=== PATIENT | male | born 2005 | race Caucasian/White ===

== ENCOUNTER 2025-07-12 10:42 | Outpatient (AMB) | payer BC, SELFPAY ==
--- NOTE | 2025-07-12 10:48 | A.OFFPC_ITS ---
Vital Signs 07/12/25 10:55 Height 5 ft 6.54 in Weight 120 lb 8 oz BMI 19.1 BP 116/70 Blood Pressure Location Lt brachial Position Sitting Respiration 12 Pulse 77 Pulse Source Pulse Oximeter Temp 97.7 F Temp Source Oral Pulse Oximetry (%) 98 Oxygen Delivery Method Room Air Intake Visit Reasons: CPE Intake Note: New patient visit Mechatronics Technician Required: No Allergies No Known Allergies Allergy (Verified 07/12/25 10:49) Tobacco use date assessed: 07/12/25 Dental Screening Dental Screen Date: 07/12/25 Did you have a dental visit in the last 12 months?: Yes Did you have a dental problem in the last 6 months where you did not have access to dental care?: No Was dental information given to patient?: Patient has dentist HPI HPI Comments History of Present Illness Details [place] 20 y/o M with ADHD, fhx of glaucoma and macular and thyroid dz. Surgery: wisdom teeth extraction Social: [employer] Fhx: Brother w/ thyroid; Mom with thyroid Health Maintenance Tdap [facility] annual visits History of Present Illness - The patient is a 20-year-old male pres enting for a comprehensive physical exam and establishment of care. - No medical records, Peds in [place] - Reports history of ADHD without curren t medication. - Family history includes thyroid diseas e and ophthalmologic conditions. - Tetanus vaccination updated; prior vac cination in 2014. - Screened for thyroid disease due to [facility] history; results negative per reports. Past Surgical History - [place] teeth extraction with no compli cations. Family History - Mother: Thyroid disease. - Brother: Thyroid disease. - Family history of glaucoma and age-rel ated macular degeneration. Social History - Employed in [employer]. - Lives with parents; reports feeling sa fe at home. - Engaged in a stable relationship. - Reports practicing safe sexual activit ies with a single partner. Health Maintenance - Tetanus vaccination updated as of this visit. - Previously screened for thyroid dysfun ction with normal results due to family history. - Education on self-testicular exams and safe sexual practices provided. Review of Systems - General: Denies significant medical is sues; reports good overall health. - Ophthalmologic: Denies any current iss ues, aware of family history. - Endocrine: Denies any current symptoms ; family history of thyroid disorders. - Dermatologic: Denies any skin concerns . - Genitourinary: Reports practicing safe sex; denies concerns of sexually transmitted diseases. - Neurologic: Reports past history of AD HD, currently asymptomatic. - Other Systems: Specifically denies all ergies, medications, or other ongoing medical treatments. Physical Exam General: Well developed, well nourished, in no acute distress. Appears stated age. Head: Normocephalic, atraumatic. Eyes: Pupils are equal, round and reactive to light and accommodation. Conjunctivae are clear. Vision grossly normal. Ears: TMs clear AU, EACS WNL Nose: Patent, without discharge. Neck: Supple, no adenopathy or thyromegaly. Breast: Edu on SBE Lungs: Clear to auscultation bilaterally. No rales, rhonchi or wheeze noted. Good air flow in all james. Heart: Regular rate and rhythm. No murmurs, click, rubs or gallops are noted. Abdomen: Bowel sounds present in all quadrants. The abdomen is soft, nontender, with no masses or organomegaly noted. No hernias are noted. : Deferred. Reviewed GISSELLE & recommendations Pulses: Peripheral pulses are equal and palpable bilaterally. Extremities: No clubbing, cyanosis nor edema is noted. A blister noted on the foot, likely from walking, should continue to improve. Neurologic: Gait and station normal. Cranial Nerves 2-12 intact. Motor strength grossly symmetrical and intact. No sensory loss. Balance normal. Skin: No rashes, ulcers, or lesions noted. Turgor is good. Skin color is good. Hair and nails are without abnormalities. Psych: Normal eye contact, affect and mood appropriate, and normal interactions. Patient is alert and appropriate to context. Discussion Notes During the consultation, we discussed the patient?s current health status, focusing on general wellness and the family history of thyroid disease and ophthalmologic concerns. I emphasized the importance of regular health maintenance, including self-exams and safe sexual practices. I outlined the functionality of our patient portal for easy communication and follow-up. The patient was encouraged to maintain this channel open for any future health queries or updates. Additionally, I informed the patient about walk-in services available at the clinic should immediate concerns arise. Patient was given time to ask questions. All questions were answered to their satisfaction. Assessment and Plan 1. Attention Deficit Hyperactivity Disor elly (ADHD) - No medication required; maintain monit oring. 2. Thyroid Screening and Family History Concerns - Past screenings normal; advise monitor ing for any symptoms. 3. General Wellness and Ophthalmologic C oncerns - Remain observant of ophthalmologic con ditions; advise routine checks. Tdap today; get records RTO 1 year CPE, sooner PRN Patient Instructions - Set up account in patient portal withi n 24 hours for future communication. - Conduct monthly self-testicular exams; report changes. - Maintain regular annual physical exams . - Continue practicing safe sex. - Notify any symptom changes or medical concerns via patient portal. Consent Patient was informed and verbally consented to the use of an ambient scribe for clinic note documentation during this visit. An additional 20 minutes was spent addressing the problem(s) noted at todays visit. This includes time spent before the visit reviewing the chart, time spent during the visit, and time spent after the visit on documentation reviewing laboratory results, diagnostic imaging, medications, performing a medically necessary evaluation, counseling on diagnoses, care coordination, ordering appropriate tests, ordering appropriate medications, review of tests performed by other providers, reporting test results with the patient, communication with other healthcare providers. [facility] Surgical History (Updated 07/12/25 @ 11:04 by Ellen Pedersen CMA) H/O wisdom tooth extraction Family History (Updated 07/12/25 @ 11:08 by Ellen Pedersen CMA) Maternal Uncle Alcoholism Maternal Grandmother Heart attack Father Hyperlipidemia Mother HTN (hypertension) Thyroid disease Paternal Grandfather Cancer of kidney Other Substance abuse Social History (Updated 07/12/25 @ 11:08 by Ellen Pedersen CMA) Housing: House Alcohol intake: current Patient Tobacco Use Status: Current someday Tobacco user Tobacco use type: Cigar (one every other month) e-Cigarette/Vaping Use: Never Used Second Hand Smoke Exposure: No Use of substances other than those prescribed or required for medical reasons: No service: No Current occupational status: employed Current occupation: [employer] at [employer]. Current occupational exposures/hazards: No Cognitive needs: No Hearing needs: No Vision needs: No Questionnaire PHQ-9 Over the last 2 weeks, how often have you been bothered by any of the following problems? 1. Little interest or pleasure in doing things: not at all 2. Feeling down, depressed, or hopeless: not at all 3. Trouble falling or staying asleep, or sleeping too much: not at all 4. Feeling tired or having little energy: several days 5. Poor appetite or overeating: not at all 6. Feeling bad about yourself - or that you are a failure or have let yourself or your family down: not at all 7. Trouble concentrating on things, such as reading the newspaper or watching television: not at all 8. Moving or speaking so slowly that other people could have noticed. Or the opposite - being so fidgety or restless that you have been moving around a lot more than usual: several days 9. Thoughts that you would be better off or of hurting yourself in some way: not at all Total score: 2 Depression Screening Interpretation: Negative Depression Screening Done: Yes 42147 - PHQ-9 Billing: Yes Source: Developed by Drs. Saurabh Guerra, Laverne Olvera, Jimbo Awad and colleagues, with an educational claude from [employer]. Thrive Questionnaire Date Thrive assessed: 07/05/25 I am a: Patient What is your living situation today?: I have a steady place to live Within the past 12 months, did the food you bought not last and you didn't have the money to get more?: Never true Within the past 12 months, did you worry whether your food would run out before you got money to buy more?: Never true Do you have trouble paying for medicines?: I choose not to answer this question Do you have trouble getting transportation to medical appointments?: No Do you have trouble paying your heating and electricity bill?: No Do you have trouble taking care of your child, family member or friend?: No Do you have trouble with day-to-day activities such as bathing, preparing meals, shopping, managing finances, etc.?: No Are you currently unemployed and looking for a job?: No Are you interested in more education?: Yes Please select the resources that you would like help with: Education Currently or been in a relationship where the following occur: No concerns reported THRIVE Score: 0 AUDIT C Alcohol Use Questionnaire (AUDIT-C) 1. How often do you have a drink containing alcohol?: Monthly or less 2. How many drinks containing alcohol do you have on a typical day when you are drinking?: 1 or 2 3. How often do you have six or more drinks on one occasion?: Less than monthly Total Score: 2 Score Reviewed/Action Taken: Yes CHRISTOPHER-7 AMB Questionnaire CHRISTOPHER-7 Date CHRISTOPHER - 7 assessed: 07/12/25 Feeling nervous, anxious, or on edge: 0 = Not at all Not being able to stop or control worryin = Not at all Worrying too much about different things: 0 = Not at all Trouble relaxin = Not at all Being so restless that it is hard to sit still: 0 = Not at all Becoming easily annoyed or irritable: 1 = Several days Feeling afraid as if something awful might happen: 0 = Not at all Total CHRISTOPHER-7 score (0-4 normal; 5-9 mild; 10-14 moderate; 15-21 severe): 1 Source: Developed by Drs. Saurabh Guerra, Laverne Olvera, Jimbo Awad and colleagues, with an educational claude from [employer]. CHRISTOPHER-7 Assessment Billing CHRISTOPHER-7 Assessment Tool: CHRISTOPHER-7 Assessment 43672 Physical exam (Primary Care) Vital Signs: Last Vital Signs Temp 97.7 F 07/12/25 10:55 Pulse 77 07/12/25 10:55 Resp 12 07/12/25 10:55 BP 116/70 07/12/25 10:55 Pulse Ox 98 07/12/25 10:55 Oxygen Delivery Method Room Air 07/12/25 10:55 BMI result Body Mass Index 19.1 Tobacco/Smoking Status: Tobacco use Status Tobacco use date assessed 07/12/25 07/12/25 10:49 Patient Tobacco Use Status Current someday Tobacco 07/12/25 11:08 Tobacco use type Cigar (one every other month 07/12/25 11:08 ) e-Cigarette/Vaping Use Never Used 07/12/25 11:08 PHQ-9: PHQ-9 Score PHQ-9: Total score 2 07/12/25 11:19 Depression Screening Interpretation: Negative Thrive Assessment: Date of Thrive Assessment Date Thrive assessed 07/05/25 07/12/25 10:49 Currently or been in a relationship where the following occur: No concerns reported Immunizations Boostrix Tdap 2.5 Lf unit-8 mcg-5 Lf/0.5 mL intramuscular syringe Performing Provider: Gwen L O'Hudson, WINDOWS VMWARE ADMINISTRATOR-BC Performing Location: [facility] Administered by: Ellen Pedersen CMA on 07/12/25 11:09 Dose Route Admin Location Dispensed Lot Number Expiration Date [employer] 0.5 mL IM Right Deltoid 0.5 mL [id number] 09/13/27 [id number] Fondu Total Dispensed Waste 0.5 mL 0 % VIS Given Date VIS Provided VIS Publication Date 07/12/25 Single Vaccine 21 Eligibility Eligibility Date Funding Source Not [facility] Eligible 07/12/25 Private Coding Level of Care Code New Pt Level 2 (46929) New Pt Prev Care 18-39yr(32459 Diagnoses Encounter to establish care with new provider Z76.89 Need for Tdap vaccination Z23 Attention deficit hyperactivity disorder (ADHD), combined type F90.2 Attention deficit-hyperactivity disorder type: combined inattentive- hyperactive Family history of macular degeneration Z83.518 Family history of glaucoma Z83.511 Family history of thyroid disease Z83.49 Encounter for general adult medical examination without abnormal findings Z00.00 Additional Codes CHRISTOPHER-7 Assessment Billing - CHRISTOPHER-7 Assessment Tool: CHRISTOPHER-7 Assessment 18753 ([id number]) PHQ-9 - 05473 - PHQ-9 Billing: Yes ([id number]) Assessment & Plan Assessment & Plan (1) Encounter to establish care with new provider: Code(s): Z76.89 - Persons encountering health services in other specified circumstances (2) Need for Tdap vaccination: Code(s): Z23 - Encounter for immunization Category: Medical (3) ADHD: Code(s): F90.9 - Attention-deficit hyperactivity disorder, unspecified type Category: Medical Qualifiers: Attention deficit-hyperactivity disorder type: combined inattentive- hyperactive Qualified Code(s): F90.2 - Attention-deficit hyperactivity disorder, combined type (4) Family history of macular degeneration: Code(s): Z83.518 - Family history of other specified eye disorder Category: Medical (5) Family history of glaucoma: Code(s): Z83.511 - Family history of glaucoma Category: Medical (6) Family history of thyroid disease: Comment: mom and brother Code(s): Z83.49 - Family history of other endocrine, nutritional and metabolic diseases Category: Medical (7) Encounter for general adult medical examination without abnormal findings: Onset Date: ~07/12/25 Code(s): Z00.00 - Encounter for general adult medical examination without abnormal findings Category: Medical Plan . Orders: Orders TDaP Immunization Today Z23 - Encounter for immunization Patient Instructions: Walk-In Care (Urgent Care): We Make it Easy Walk-in for urgent medical issues such as: ? Seasonal Allergies ? Insect Bites ? Cough ? Diarrhea ? Acute Asthma Attacks ? Back, Knee or Joint Pain ? Ear Infection ? Fever without a Rash ? Headaches ? Nausea ? [place], Rash or Skin Irritation ? Sore Throat ? Sports Physicals ? Vomiting Most insurances are accepted. Patients do not need to be part of the [facility] to seek care at the walk-in clinic. Locations [facility] , [place] [address] ? [phone] [facility] Walk-In Care in [place] provides services to ages 18 and over. Open Friday-Friday: 8 a.m. to 5 p.m. and Friday: 9 a.m. to 3 p.m.* *Hours may vary due to staffing availability. To confirm Walk-In Care hours in [place], please call [phone]. [address] [place] [address] ? [phone] [facility] Walk-In Care in [place] provides services to ages 12 and over. Open Friday-Friday: 8 a.m. to 5 p.m. Hours may vary due to staffing availability. To confirm Walk-In Care hours in [place], please call [phone]. LABORATORY SERVICES: [facility] ? Primary Location [address] [place] [address] Friday through Friday 6:00 AM ? 5:00 PM Friday 7:00 AM ? 11:00 AM* [phone] The [facility] is centrally located near the front entrance of the Medical Center for easy outpatient access. Convenient parking is provided for outpatients. *Hours may vary due to staffing availability. To confirm Laboratory hours for any location, please call [phone]. Offsite Location For your convenience, we offer offsite laboratory draw stations at the following locations: [address] [place] [address] ? [facility] [address], [address] Friday through Friday 7:30 AM ? 1:00 PM* [phone] *Hours may vary due to staffing availability. To confirm Laboratory hours for any location, please call [phone]. [place] [address] [facility] Friday through Friday 6:00 AM ? 3:30 PM* Friday 6:30 AM ? 3 PM* [phone] *Hours may vary due to staffing availability. To confirm Laboratory hours for any location, please call [phone]. [address] [facility] Friday through Friday 7:30 AM ? 4:00 PM* [phone] *Hours may vary due to staffing availability. To confirm Laboratory hours for any location, please call [phone]. [address] [facility] Friday through 9:00 AM ? 4:00 PM* *Hours may vary due to staffing availability. To confirm Laboratory hours for any location, please call [phone]. Appointments are not necessary. Walk-ins are welcome. Like all the departments throughout the [facility], our Lab undergoes frequent reviews to ensure the quality and accuracy of test results, and our staff takes special pride in its status as a nationally accredited facility. Patient Portal: ONE PATIENT. ONE RECORD. BETTER CARE. [facility] has a fully integrated, cutting- edge mobile electronic health information system that has revolutionized the way we care for our patients and manage our organization. This system improves communication and coordination enabling us to provide safe, higher-quality care, and an overall positive experience for staff and patients. Our first priority, as always, is to deliver the highest quality care possible. The system is running in the background supporting that priority. This portal is for all [facility] services and practices. If you are experiencing any technical difficulties with enrolling or logging into the Patient Portal please complete the [facility] Patient Portal Technical Support Form. [facility] now offers a new secure on-line interactive tool for patients to review their health information ? ?Patient Portal. This interactive web portal will enable patients and their families to take an active role in their care by providing easy, secure access to their health information via the internet. The Patient Portal provides patients with instant access to their health information, including laboratory results, medications, allergies, demographic information, visit history, and more. In addition to managing their own care, parents and health care proxies with authorized consent will appreciate the ability to access the records of those individuals for whom they provide care. Please note: if you wish to gain access (Proxy) to another patient?s portal, you will be required to come to the Medical Records Department in person at [facility]. Both the patient giving proxy access and the proxy will need to provide photo identification and complete the appropriate authorization. The Patient Portal also allows track their appointments online. The [facility] Patient Portal also saves patients time by allowing them to submit updates to their demographic and contact information prior to their visits. Portal email notifications will also alert patients to any new activity on their portal, such as test results and new appointments. In order to initially enroll in the [facility] Patient Portal, you will need to enter some required information including the following: * your [facility] Medical Record number * your personal home email address * name * date of Please note: In order to enroll in the [facility] Patient Portal, we need to have your email address on file in your electronic medical record. ?The email address needs to be specific for one person (yourself) in order for your Portal e nrollment to be successful. ?You can update your email address in person with our Registration staff when you are registering for a hospital visit. ?Otherwise, you will need to come to the Health Information Management (Medical Records) Department at [facility]. ?We are open from Friday ? Friday from 7:30 a.m. ? 4:30 p.m. ?You will be required to present a photo id. Once you have successfully enrolled in the Patient Portal, you will receive a one-time user id and password for the Portal, sent to your email address. ?This will allow you to log into the Patient Portal within 99 hrs and reset your own logon id and password, and define personal security questions. ?Once your permanent login and password have been set, you can log into the [facility] Patient Portal at any time via the blue button above or from the Portal Logon button on any page of the [facility] website. [facility] encourage all of our patients to enroll in Patient Portal as it presents a valuable opportunity for patients and their families to actively participate in their care and stay healthy Welcome to [facility]. ?We look forward to working with you. Health screenings for men You should visit your health care provider regularly, even if you feel healthy. The purpose of these visits is to: Screen for medical issues Assess your risk for future medical problems Encourage a healthy lifestyle Update vaccinations and other preventive care services Help you get to know your provider in case of an illness Information Even if you feel fine, you should still see your provider for regular checkups. These visits can help you avoid problems in the future. For example, the only way to find out if you have high blood pressure is to have it checked regularly. High blood sugar and high cholesterol level also may not have any symptoms in the early stages. Simple blood tests can check for these conditions. There are specific times when you should see your provider or receive specific health screenings. The [place] Preventive Services Task Force publishes a list of recommended screenings. Below are screening guidelines for men ages 40 to 64. BLOOD PRESSURE SCREENING Have your blood pressure checked at least once every year. Watch for blood pressure screenings in your area. Ask your provider if you can stop in to have your blood pressure checked. Ask your provider if you need your blood pressure checked more often if: You have diabetes, heart disease, kidney problems, or are overweight or have certain other health conditions You have a first-degree relative with high blood pressure You are Black Your blood pressure top number is from 120 to 129 mm Hg, or the bottom number is from 70 to 79 mm Hg If the top number is 130 mm Hg or greater or the bottom number is 80 mm Hg or greater, this is considered stage 1 hypertension. Schedule an appointment with your provider to learn how you can lower your blood pressure. Effects of age on blood pressure CHOLESTEROL SCREENING Cholesterol screening should begin at age 35 for men with no known risk factors for coronary heart disease. Repeat cholesterol screening should take place: Every 5 years for men with normal cholesterol levels More often if changes occur in lifestyle (including weight gain and diet) More often if you have diabetes, heart disease, kidney problems, or certain other conditions COLORECTAL CANCER SCREENING If you are under age 45, talk to your provider about getting screened. You may need to be screened if you have a strong family history of colon cancer or polyps. Screening may also be considered if you have risk factors such as a history of inflammatory bowel disease or polyps. If you are age 45 to 75, you should be screened for colorectal cancer. There are several screening tests available: A stool-based fecal occult blood (gFOBT) or fecal immunochemical test (FIT) every year A stool sDNA test every 1 to 3 years Flexible sigmoidoscopy every 5 years or every 10 years with stool testing FIT done every year CT colonography (virtual colonoscopy) every 5 years Colonoscopy every 10 years You may need a colonoscopy more often if you have risk factors for colorectal cancer, such as: Ulcerative colitis A personal or family history of colorectal cancer A history of growths in your colon called adenomatous polyps DENTAL EXAM Go to the dentist once or twice every year for an exam and cleaning. Your dentist will evaluate if you have a need for more frequent visits. DIABETES SCREENING All adults who do not have risk factors for diabetes should be screened starting at age 35 and repeated every 3 years. If you have other risk factors for diabetes, such as a first degree relative with diabetes, overweight or obesity, high blood pressure, prediabetes, or a history of heart disease, you may be tested more often. If you are overweight and have other risk factors, such as high blood pressure and are planning to become , screening is recommended. EYE EXAM Have an eye exam every 2 to 4 years ages 40 to 54 and every 1 to 3 years ages 55 to 64. Your provider may recommend more frequent eye exams if you have vision problems or glaucoma risk. Have an eye exam that includes an examination of your retina (back of your eye) at least every year if you have diabetes. IMMUNIZATIONS Commonly needed vaccines include: Flu shot: get one every year COVID-19 vaccine: ask your provider what is best for you Tetanus-diphtheria and acellular pertussis (Tdap) vaccine: have as one of your tetanus-diphtheria vaccines if you did not receive it as an adolescent Tetanus-diphtheria: have a booster (or Tdap) every 10 years Varicella vaccine: receive 2 doses if you never had chickenpox or the varicella vaccine and were born in 1980 or after Hepatitis B vaccine: receive 2, 3, or 4 doses, depending on your exact circumstances, if you did not receive these as a child or adolescent, until age 59 Shingles (herpes zoster) vaccine: at or after age 50 Ask your provider if you should receive other immunizations, especially if you have certain medical conditions, such as diabetes or are at increased risk for some diseases such as pneumonia. INFECTIOUS DISEASE SCREENING Screening for hepatitis C: all adults ages 18 to 79 should get a one-time test for hepatitis C. Screening for human immunodeficiency virus (HIV): all people ages 15 to 65 should get a one-time test for HIV. Depending on your lifestyle and medical history, you may need to be screened for infections such as syphilis, chlamydia, and other infections. LUNG CANCER SCREENING You should have an annual screening for lung cancer with low-dose computed tomography (LDCT) if: You are age 50 to 80 years AND You have a 20 pack-year smoking history AND You currently smoke or have quit within the past 15 years OSTEOPOROSIS SCREENING If you are age 50 to 64 and have risk factors for osteoporosis, you should discuss screening with your provider. Risk factors can include long-term steroid use, low body weight, smoking, heavy alcohol use, having a fracture after age 50, or a family history of hip fracture or osteoporosis. Osteoporosis PHYSICAL EXAM All adults should visit their provider from time to time, even if they are healthy. The purpose of these visits is to: Screen for diseases Assess risk of future medical problems Encourage a healthy lifestyle Update vaccinations and other preventive care services Maintain a relationship with a provider in case of an illness Your height, weight, and body mass index (BMI) should be checked at every exam. During your exam, your provider may ask you about: Depression and anxiety Diet and exercise Alcohol and tobacco use Safety, such as use of seat belts and smoke detectors Your medicines and risk for interactions PROSTATE CANCER SCREENING If you're 55 through 69 years old, before having the test, talk to your provider about the pros and cons of having a PSA test. Ask about: Whether screening decreases your chance of dying from prostate cancer. Whether there is any harm from prostate cancer screening, such as side effects from testing or overtreatment of cancer when discovered. Whether you have a higher risk of prostate cancer than others. If you are age 55 or younger, screening is not generally recommended. You should talk with your provider about if you have a higher risk for prostate cancer. Risk factors include: Having a family history of prostate cancer (especially a brother or father) Being If you choose to be tested, the PSA blood test is repeated over time (yearly or less often), though the best frequency is not known. Prostate examinations are no longer routinely done on men with no symptoms. Prostate cancer SKIN EXAM Your provider may check your skin for signs of skin cancer, especially if you're at high risk. People at high risk include those who have had skin cancer before, have close relatives with skin cancer, or have a weakened immune system. TESTICULAR EXAM The [place] Preventive Services Task Force (USPSTF) now recommends against performing testicular self-exams. Doing testicular self-exams has been shown to have little to no benefit.
[2025-07-12 10:55] VITALS: BP 116/70; PULSE 77; RESP 12; TEMP 36.5; O2SAT 98; BMI 19.1
--- OUTSIDE RECORDS SUMMARY | 2025-07-12 12:10 | XMS_ITS | Encounter Summary ---
Author Organization [facility] Address [address] [place] [id number] Phone Care Team Providers Care Retort Kiln Burner Name Role Phone Unavailable Primary Care Provider Unavailabl e Reason for Visit * Reason Onset Date Comments release of records 07/11/2025 Encounter Details Date Type Department Care Team ([facility] st Contact Info) Description 07/11/20[facility] [address] [address] [address] [address] release of records Social History Tobacco Use Types Packs/Day Years Used Date Smoking Tobacco: Never Assessed Hunger/Food Answer Date Recorded In the last 12 months, did y ou or your family ever eat less than you felt you should because there wasn't enough money for food? No 08/04/2024 Stable Housing Answer Date Recorded Are you worried that in the next 2 months you may not have stable housing? No 08/04/2024 Transportation Concerns Answer Date Rec orded In the last 12 months, have you or your family ever had to go without healthcare because you didn't have a way to get there? No 08/04/2024 Hazards in Home Answer Date Recorded Think about the place you li ve. Do you have problems with any of the following? Pests (mice or roaches), mold, no/not working smoke detectors, water leaks, no window guards. No 2023 Financing Utilities Answer Date Recorde d In the last 12 months, has t he electric, gas, oil, or water company threatened to shut off your services in your home? No 08/04/2024 Safety at Home Answer Date Recorded Are you or your family worried about feeling saf e in your home? No 08/04/2024 Outside Support Answer Date Recorded Do you feel that you need mo re support from other people or programs to help you care for yourself or your family? No 08/04/2024 Understanding Health Concerns Answer Da te Recorded Do you need help understandi ng your or your child's healthcare needs (diagnosis, medications, plan, etc.)? No 08/04/2024 Financing Health Concerns Answer Date R ecorded In the last 12 months, was t here a time when your child needed to see a doctor or get medications or supplies but could not because of cost? No 08/04/2024 Missing School or Work Answer Date Tanvir rded Did you or your child miss s chool or work because of a health problem that could have been avoided? No 08/04/2024 Child Education Answer Date Recorded Do you have concerns about y our/your child's learning or behavior in school, preschool, or daycare? No 08/04/2024 Sex and Gender Information Value Date Recorded Sex Assigned at Male 08/04/2024 1:24 PM EDT Legal Sex Male 6:25 PM EDT Gender Identity Male 08/04/2024 1:24 PM EDT Sexual Orientation Straight 02/07/2022 11 :34 AM EDT documented as of this encounter Miscellaneous Notes * Telephone Encounter - Shiva Alba MA - 07/11/2025 1:40 PM EDT Release of records received and sent to [facility] [address] [place] [address], [id number] Phone- [phone] Fax- [phone] Records printed and faxed. Scanned into media. documented in this encounter Plan of Treatment Not on file documented as of this encounter Visit Diagnoses Not on filedocumented in this encounter
== END 2025-07-12 11:39 | disposition home or self-care (01) ==
LOC: HO.HMCFM 10:43
PROVIDERS: PCP Nurse Practitioner Family; Visit Provider Nurse Practitioner Family
DX: Z00.00 Encounter for general adult medical examination without abnormal findings (principal); F90.2 Attention-deficit hyperactivity disorder, combined type; Z76.89 Persons encountering health services in other specified circumstances; Z83.518 Family history of other specified eye disorder; Z23 Encounter for immunization; Z83.511 Family history of glaucoma; Z83.49 Family history of other endocrine, nutritional and metabolic diseases

== ENCOUNTER → 2025-07-12 10:42 | Outpatient (BNVA) | payer BC, SELFPAY | PROVIDERS: PCP Nurse Practitioner Family; Visit Provider Nurse Practitioner Family | DX: Z00.00 Encounter for general adult medical examination without abnormal findings (principal); F90.9 Attention-deficit hyperactivity disorder, unspecified type; F90.2 Attention-deficit hyperactivity disorder, combined type; Z23 Encounter for immunization; Z76.89 Persons encountering health services in other specified circumstances; Z83.518 Family history of other specified eye disorder; Z83.511 Family history of glaucoma; Z83.49 Family history of other endocrine, nutritional and metabolic diseases | CPT/HCPCS: 90471; 90715; 96127 ==